=== PATIENT | female | born 1930 | race Caucasian/White ===

== ENCOUNTER → 2017-06-17 | Day surgery (SDC) | payer MEDICARE, OTHER ==
[~2017-06-17] MED LIST: BACITRACIN OPHT OINT 3.5 GM TUBO ONE; BACITRACIN TOP OINT 15 GM TUBE ONE; BUPIVACAINE/EPINEPHRINE 0.25% 50 ML VIAL ONE; LACTATED RINGER'S 1000 ML INJ 1,000 ML ONE; ONDANSETRON HCL 4 MG/2 ML VIAL IV PUSH ONE; PROPOFOL 200 MG/20 ML AMP IV ONE; ceFAZolin 2 GM PREMIX 50 ML ONE
--- NOTE | 2017-06-17 09:47 | TN ---
cc: CHELSEY FALL DATE OF SURGERY 06/17/2017 PREOPERATIVE DIAGNOSIS Basal cell carcinoma right lateral tibia POSTOPERATIVE DIAGNOSIS Basal cell carcinoma right lateral tibia PROCEDURE Wide excision of right lower extremity lateral tibial area basal cell carcinoma with intermediate closure 6 cm x 2 cm. ATTENDING SURGEON Chelsey Fall MD [employer] Staff ANESTHESIA General local anesthetic BLOOD LOSS Less than 10 cc COMPLICATIONS None FINDINGS Moderate tension with closure due to the area located on the distal lateral tibia. INDICATIONS FOR PROCEDURE The patient is an 87-year-old female with a recently diagnosed basal cell carcinoma right lower extremity lateral tibia. The patient was recommended to undergo excision by dermatology and the risks, benefits and alternatives to wide excision and anesthetic were discussed with the patient prior to the procedure and the patient agreed to undergo the procedure. PROCEDURE The patient was taken to the operating room at [facility], placed under general anesthesia. The right lower extremity was prepped and draped in a sterile fashion. Time-out was performed. Local anesthetic was instilled in the planned excision site over the right lower lateral tibial area around the marked lesion. An incision was made with a 15 blade scalpel to completely encompass the lesion and the biopsy scar for at least 5 mm around all sides. This was made in an elliptical type fashion to facilitate closure. This was 2 cm x 6 cm. This was removed from the subcutaneous tissue with the Bovie electrocautery. The stitch was marked superior at 12 o'clock and passed off for permanent processing. We did have some undermining 360 degrees around the wound with the Bovie electrocautery to elevate as much skin as we could for closure. We then placed 3-0 deep dermal Vicryl sutures which we were able to close the majority of the wound along the wound edge. There were still some small areas of the skin that was not opposed at the central portion of the wound and this was then closed with 2-0 nylon vertical mattress sutures. This completely closed the skin with some minimal to moderate tension. The skin was all viable and had a good technical sound closure. We placed antibacterial ointment over the wound and placed Telfa and an Benoit wrap dressing. The patient discontinued from anesthesia and taken to the PACU in stable condition. The patient tolerated procedure well. No apparent complications. All counts were correct. I was present and scrubbed for the entire procedure. MD GREGORY Casillas/MARY /9:33 AM /9:38 AM
== END | disposition home or self-care (01) ==
LOC: ESDC 06:28
PROVIDERS: ATTEND Surgery
DX: C44.712 Basal cell carcinoma of skin of right lower limb, including hip (principal)
CPT/HCPCS: 00400; 11606; 12032; 88305; J0690; J2405; J3010; J7120